=== PATIENT | male | born 1965 ===

== ENCOUNTER 2023-08-20 08:48 | Emergency (ER) | payer OTHER ==
[~2023-08-20] VITALS: Ht 170.2 cm; Wt 79.5 kg
[2023-08-20] MEDS ORDERED: DiphenhydrAMINE HCL 25 MG CAPSULE PO ONE (09:45)
[2023-08-20] MEDS ORDERED: KETOROLAC TROMETHAMINE 60 MG/2 ML VIAL IM ONE (09:45)
[2023-08-20 10:50] VITALS: TEMP 99.2
[2023-08-20 11:15] VITALS: BP 125/91; PULSE 97; RESP 12
[2023-08-20] MEDS ORDERED: DIPH50CA37 PO (11:16)
[2023-08-20] MEDS ORDERED: IBUP-1554 PO (11:16)
== END 2023-08-20 11:33 | disposition home or self-care (01) ==
LOC: EMS 08:55
DX: S46.912A Strain of unspecified muscle, fascia and tendon at shoulder and upper arm level, left arm, initial encounter (principal); T78.40XA Allergy, unspecified, initial encounter; Z59.00 Homelessness unspecified; X58.XXXA Exposure to other specified factors, initial encounter; Y93.89 Activity, other specified; Y92.89 Other specified places as the place of occurrence of the external cause; Y99.8 Other external cause status
CPT/HCPCS: 99283; 73030; 96372; J1885